=== PATIENT | female | born 1945 | race Caucasian/White ===

== ENCOUNTER → 2019-09-27 07:51 | Outpatient (CLI) | payer MEDICARE, BC, SELFPAY ==
--- NOTE | 2019-09-27 | DI.US.S_ITS ---
PROCEDURE: US ABDOMEN LIMITED INDICATIONS: RIGHT ABDOMINAL WALL LUMP TECHNIQUE: Real-time focused scanning was performed of the abdomen, with image documentation. COMPARISON: None. FINDINGS: There is a 1.6 x 3.3 x 6.4 cm slightly geuvklptx-oh-rvnk wall fat structure that appears sharply demarcated correlated with the body wall lump at that site. 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 IMPRESSION: Presumed lipoma causing the 1.6 x 3.3 x 6.4 cm body wall mass within the fatty soft tissues in the exact area of current clinical concern. Close clinical followup is recommended and if unusual symptoms develop or further enlargement develops followup by contrast enhanced MR scanning would be recommended. Dictated by: Jose Antonio Hallman M.D. on 09/27/2019 at 9:00 Approved by: Jose Antonio Hallman M.D. on 09/27/2019 at 9:01
== END ==
PROVIDERS: PCP Physician Assistant Medical; Referring Provider Physician Assistant Medical; Visit Provider Physician Assistant Medical
DX: R22.2 Localized swelling, mass and lump, trunk (principal)
CPT/HCPCS: 76705

== ENCOUNTER → 2019-10-20 13:43 | Outpatient (CLI) | payer MEDICARE, BC, SELFPAY ==
--- NOTE | 2019-10-20 13:44 | DI.MG.S_ITS ---
BILATERAL DIGITAL SCREENING MAMMOGRAM 3D/2D WITH CAD: 10/20/2019 Comparison is made to exam dated: 08/05/2018 mammogram - [facility]. There are scattered fibroglandular elements in both breasts. Current study was also evaluated with a Computer Aided Detection (CAD) system. No significant masses, calcifications, or other findings are seen in either breast. There has been no significant interval change. IMPRESSION: NEGATIVE There is no mammographic evidence of malignancy. A 1 year screening mammogram is recommended. This exam was interpreted at Station ID: [id number]. NOTE: For mammograms, a report in lay terms will be sent to the patient. Approximately 15% of breast malignancies will not be visualized mammographically. In the management of a palpable breast mass, a negative mammogram must not discourage biopsy of a clinically suspicious lesion. Electronically Signed By: Yessenia fong/brenda:10/20/2019 15:08:42 copy to: Amy Sampson letter sent: Normal Exam ACR BI-RADS Category 1: Negative 3341F
== END ==
PROVIDERS: PCP Physician Assistant Medical
DX: Z12.31 Encounter for screening mammogram for malignant neoplasm of breast (principal); Z80.3 Family history of malignant neoplasm of breast
CPT/HCPCS: 77063; 77067

== ENCOUNTER → 2020-04-23 10:18 | Outpatient (CLI) | payer MEDICARE, BC, SELFPAY | PROVIDERS: PCP Physician Assistant Medical; Referring Provider Physician Assistant Medical; Visit Provider Physician Assistant Medical | DX: M85.852 Other specified disorders of bone density and structure, left thigh (principal); Z78.0 Asymptomatic menopausal state | CPT/HCPCS: 77080 ==

== ENCOUNTER → 2020-10-23 10:35 | Outpatient (CLI) | payer MEDICARE, BC, SELFPAY ==
--- NOTE | 2020-10-23 | DI.MG.S_ITS ---
BILATERAL DIGITAL SCREENING MAMMOGRAM 3D/2D WITH CAD: 10/23/2020 CLINICAL: Routine screening. Family history of breast cancer. Comparison is made to exams dated: 10/20/2019 mammogram - [facility] and 08/05/2018 mammogram - [facility]. There are scattered fibroglandular elements in both breasts. Current study was also evaluated with a Computer Aided Detection (CAD) system. There are benign vascular calcifications in the right breast. No significant masses, calcifications, or other findings are seen in either breast. There has been no significant interval change. IMPRESSION: BENIGN There is no mammographic evidence of malignancy. A 1 year screening mammogram is recommended. This exam was interpreted at Station ID: [id number]. NOTE: For mammograms, a report in lay terms will be sent to the patient. Approximately 15% of breast malignancies will not be visualized mammographically. In the management of a palpable breast mass, a negative mammogram must not discourage biopsy of a clinically suspicious lesion. Electronically Signed By: Yessenia fong/brenda:10/23/2020 16:44:04 copy to: Amy Sampson letter sent: Normal Exam ACR BI-RADS Category 2: Benign Finding(s) 3342F
== END ==
PROVIDERS: PCP Physician Assistant Medical; Referring Provider Physician Assistant Medical; Visit Provider Physician Assistant Medical
DX: Z12.31 Encounter for screening mammogram for malignant neoplasm of breast (principal); Z80.3 Family history of malignant neoplasm of breast
CPT/HCPCS: 77063; 77067

== ENCOUNTER → 2021-04-17 10:55 | Outpatient (CLI) | payer MEDICARE, BC, SELFPAY ==
--- NOTE | 2021-04-17 10:57 | DI.MRI.S_ITS ---
BREAST MRI OF BOTH BREASTS: 04/17/2021 CLINICAL: Family history of malignant neoplasm of the breast. TECHNIQUE: The patient was placed prone in a dedicated breast imaging coil. Precontrast axial STIR and 3D FLASH without fat saturation sequences were obtained. Both before and after bolus injection of contrast, sequential 1-minute axial 3D FLASH with fat saturation sequences for 3 time points, with subtraction images and maximum intensity projections (MIP's) generated. Delayed sagittal FLASH images with fat saturation were also obtained. Computer-aided detection, including computer algorithm analysis of MRI image data for lesion detection and characterization, pharmacokinetic analysis, with further physician review for interpretation, was performed. COMPARISON: [facility], , MM SCREENING MAMMO BI, 10/23/2020, 11:18. Image quality: Excellent. There is minimal background parenchymal enhancement. There are scattered fibroglandular tissue in the bilateral breast. Right breast: No mass, non-mass enhancement, or architectural distortion. No skin or nipple abnormalities. No axillary or internal mammary chain adenopathy. Left breast: No mass, non-mass enhancement, or architectural distortion. No skin or nipple abnormalities. No axillary or internal mammary chain adenopathy. Miscellaneous: Visualized portions of the upper abdomen and chest appear unremarkable. IMPRESSION: BENIGN 1. Right breast without MRI evidence for malignancy. 2. Left breast without MRI evidence for malignancy. Recommend continued annual screening mammography and annual screening breast MRI. COMMENT: The imaging literature indicates that a negative contrast breast MRI examination has a high sensitivity and a moderate specificity for detecting and excluding invasive carcinomas to a detection threshold of 3-5 mm; nonetheless, appropriate clinical and mammographic follow-up are recommended. MRI is not sensitive for detecting DCIS (ductal carcinoma in situ) and may not detect large invasive neoplasms that show only minimal enhancement such as mucinous carcinoma. If there are suspicious calcifications or clinically worrisome palpable masses, then biopsy should still be considered. Invasive neoplasms can be hidden by co-existent and benign enhancement caused by mastitis, hormone therapy effects, radiation therapy, , and recent biopsy or surgery. False positive examinations can occur in a number of circumstances, including breasts that have recently been subject to invasive procedures and those that contain atypical ductal hyperplasia, hormonally stimulated glandular tissue, fat necrosis, or radial scars. This exam was interpreted at Station ID: [id number]. Electronically Signed By: Ronald Hardy M.D. aty/:04/17/2021 14:08:14 ACR BI-RADS Category 2: Benign Finding(s) 3342F
== END ==
PROVIDERS: PCP Physician Assistant Medical; Referring Provider Obstetrics & Gynecology; Visit Provider Obstetrics & Gynecology
DX: Z12.39 Encounter for other screening for malignant neoplasm of breast (principal); Z80.3 Family history of malignant neoplasm of breast
CPT/HCPCS: 77049

== ENCOUNTER → 2021-10-28 10:59 | Outpatient (CLI) | payer MEDICARE, BC, SELFPAY ==
--- NOTE | 2021-10-28 | DI.MG.S_ITS ---
BILATERAL DIGITAL SCREENING MAMMOGRAM 3D/2D WITH CAD: 10/28/2021 CLINICAL: Routine screening. Family history of breast cancer. Comparison is made to exams dated: 10/23/2020 mammogram, 10/20/2019 mammogram - [facility], and 08/05/2018 mammogram - [facility]. There are scattered fibroglandular elements in both breasts. Current study was also evaluated with a Computer Aided Detection (CAD) system. There are benign vascular calcifications in the right breast. No significant masses, calcifications, or other findings are seen in either breast. There has been no significant interval change. IMPRESSION: BENIGN There is no mammographic evidence of malignancy. A 1 year screening mammogram is recommended. This exam was interpreted at Station ID: [id number]. NOTE: For mammograms, a report in lay terms will be sent to the patient. Approximately 15% of breast malignancies will not be visualized mammographically. In the management of a palpable breast mass, a negative mammogram must not discourage biopsy of a clinically suspicious lesion. Electronically Signed By: Chaka alfaro/brenda:10/28/2021 12:59:19 letter sent: Normal Exam ACR BI-RADS Category 2: Benign Finding(s) 3342F
== END ==
PROVIDERS: PCP Physician Assistant Medical; Referring Provider Physician Assistant Medical; Visit Provider Physician Assistant Medical
DX: Z12.31 Encounter for screening mammogram for malignant neoplasm of breast (principal); Z80.3 Family history of malignant neoplasm of breast
CPT/HCPCS: 77063; 77067

== ENCOUNTER → 2022-03-27 10:56 | Outpatient (CLI) | payer MEDICARE, BC, SELFPAY ==
[2022-03-27 13:50] LABS: COVID19 -Nasal RAPID Negative (Negative)
== END ==
PROVIDERS: PCP Physician Assistant Medical; Visit Provider Surgery
DX: Z20.822 Contact with and (suspected) exposure to COVID-19 (principal); Z01.812 Encounter for preprocedural laboratory examination
CPT/HCPCS: 87635; C9803

== ENCOUNTER 2022-03-30 12:34 | Day surgery (SDC) | payer MEDICARE, BC, SELFPAY ==
[2022-03-30] MEDS: SODIUM CHLORIDE 0.9% 1,000 ML 84 ML IV (14:50)
[2022-03-30 15:03] VITALS: BP 154/89; PULSE 114; RESP 18; TEMP 36.8; O2SAT 96
--- NOTE | 2022-03-30 15:11 | P.HP_ITS ---
History of Present Illness History of Present Illness Date Patient Seen: 03/30/22 Time Patient Seen: 15:12 Chief complaint: [facility] [place] Narrative: Personal history of colon polyps. Family history of colon cancer in her brother. Prior failed colonoscopy 2018. Patient History Medical History Ankle pain (~01/2019) Bunion (~2002) Chicken pox (~1949) Colon polyps (~1998) Diverticular disease (~2004) Environmental allergies (~2010) Fracture (~2014) Frequent UTI Hammer toe (~2002) Hearing loss (~04/2019) Hemorrhoid Measles Mumps (~1954) OAB (overactive bladder) Osteopenia (~2009) Perimenopause (~1993) Plantar warts (~1960) Shoulder pain (~01/2019) Skin cancer Wears glasses Surgical History Anesthesia H/O breast biopsy (~05/1978) History of colonoscopy History of foot surgery (~07/2002) History of surgery (~1999) Family & Social History Family History Father Hypertension History of heart disease Mother Cancer Brother Leukemia Sister Heart valve replaced Breast cancer Diabetes mellitus History of heart disease Glaucoma Grandmother Cancer Grandfather Stroke Grandmother Suicide Son Prediabetes Overweight Tobacco & Substance use: Smoking Status Never smoker Meds Home Medications and Allergies Home Medications Medication Instructions Recorded Confirmed Type amlodipine 5 mg tablet 5 mg PO DAILY 10/30/19 03/30/22 History estradiol 0.01% (0.1 mg/gram) 1 gram vaginal DAILY 10/30/19 03/30/22 History vaginal cream fluticasone propionate 50 2 inhalation inhalation .QD 10/30/19 03/30/22 History mcg/actuation blister powder for inhalation mirabegron 25 mg tablet,extended 25 mg PO DAILY 10/30/19 03/30/22 History release 24 hr (Myrbetriq) pravastatin 20 mg tablet 20 mg PO BEDTIME 10/30/19 03/30/22 History fluorouracil 0.5 % topical cream 1 applic topical DAILY 12/11/20 03/30/22 History dorzolamide 2 % eye drops 1 drp EYE-BOTH BID 03/30/22 03/30/22 History latanoprost 0.005 % eye drops 1 drp EYE-BOTH DAILY 03/30/22 03/30/22 History timolol maleate 0.5 % eye gel 1 drp EYE-BOTH BID 03/30/22 03/30/22 History forming solution Allergies Allergy/AdvReac Type Severity Reaction Status Date / Time No Known Drug Allergies Allergy Verified 03/30/22 14:52 Review of Systems Review of Systems ROS: Yes All systems reviewed with the patient and are negative except as otherwise documented Exam Const General: cooperative HENMT Head: normal to inspection Eyes General: appearance normal, both eyes and all related structures Neck Neck: normal visual inspection Chest Chest: normal inspection of the chest Resp Effort & Inspection: normal respiratory effort Cardio Rate: regular rate GI Inspection: normal to inspection Skin General: no rashes or lesions noted Neuro General: patient alert and patient awake Extrem General: normal to inspection and no pedal edema Psych Appearance: grossly normal Assessment & Plan Assessment & Plan narrative: 76-year-old female with a personal history of colon polyps and a family history of colon cancer. Colonoscopy is pursued today. Time Spent With Patient Critical Care time: I spent a total of [] minutes of critical care time on this patient's care today; this time is exclusive of procedural time.
--- NOTE | 2022-03-30 15:13 | PM.PREOP ---
Pre-operative Note COVID-19 COVID-19 status: Negative Result date/Date tested (Pos, Neg/Pending): 03/27/22 Criteria for continued procedure: Possibility delay results in more complex future surgery or treatment Interval Note History & Physical reviewed/Exam performed by Physician: Yes Changes to H&P: No ASA Class (for procedural sedation): II
--- NOTE | 2022-03-30 17:34 | PM.OP.COLON ---
Operative Date/Time/Diagnoses Date of procedure: 03/30/22 Time of procedure: 17:34 Pre-op diagnosis: History of colon polyps. History of failed colonoscopy. Family history of colon cancer. Post-op diagnosis: same Procedure & Clinicians Study performed: Incomplete colonoscopy Same procedure as scheduled: No Indications: History of colon polyps. History of failed colonoscopy. Family history of colon cancer. Surgeon: Gavin Powers Procedure Notes SCOAP/Timeout: Done Procedure in detail: After the risks and benefits were explained, written and verbal informed consent was obtained. The patient was brought into the procedure room and placed into the left lateral decubitus position. Please see nurse flask pusher notes for sedation details. Digital rectal examination was accomplished. The scope was introduced into the patient and advanced under direct visualization to the splenic flexure. Despite multiple changes in pressure, position, and use of the stiffening reece, we were unable to overcome looping secondary to severe left colon tortuosity. Procedure was aborted at around splenic flexure. The scope was slowly withdrawn to carefully examine the mucosa for any defects or lesions. Comprehensive imaging was accomplished throughout the rectum including the dentate line. The colon was decompressed, the scope was then removed from the patient who tolerated the procedure well. Scope withdrawal time: Not applicable Sedation minutes: 31 Specimen(s): none sent Complications: none Impression: Incomplete exam secondary to severe sigmoid tortuosity. The patient had severe sigmoid diverticulosis. Many times during the lengthy transit through left colon she started to have bradycardia but did not drop her pressure. We arrived at approximately splenic flexure. At times there was about 50 cm of scope introduced. As outlined above despite multiple efforts by multiple staff (position change pressure stiffening agent) I did not feel that I could safely advance beyond splenic flexure. The left colon did not demonstrate any significant polyps inflammation or mass lesion. Mild internal hemorrhoids were noted on direct digital exam. Endoscopic diagnosis 1. Incomplete colonoscopy 2. Diverticulosis 3. Tortuous left colon 4. Grade 1 to grade 2 hemorrhoids. Post-procedure Plan for aftercare: In light of family history, I would recommend a less invasive way of colon cancer screening via virtual colonography. In light of today's challenges, I suggest this be accomplished within the next year. Disposition: PACU
[2022-03-30 17:37] VITALS: BP 114/66; PULSE 84; RESP 19; TEMP 37.1; O2SAT 97
[2022-03-30 17:41] VITALS: BP 118/54; PULSE 88; RESP 21; O2SAT 97
[2022-03-30 17:47] VITALS: BP 119/53; PULSE 84; RESP 20; TEMP 36.6; O2SAT 97
[2022-03-30 17:52] VITALS: BP 137/75; PULSE 86; RESP 16; O2SAT 97
== END 2022-03-30 18:14 | disposition home or self-care (01) ==
PROVIDERS: PCP Physician Assistant Medical; Referring Provider Internal Medicine Gastroenterology; Visit Provider Internal Medicine Gastroenterology
PROC: 0DJD8ZZ Inspection of Lower Intestinal Tract, Via Natural or Artificial Opening Endoscopic (ICD-10-PCS; CPT 45378; principal; 2022-03-30 14:30)
DX: Z12.11 Encounter for screening for malignant neoplasm of colon (principal); Z86.010 Personal history of colon polyps; Z80.0 Family history of malignant neoplasm of digestive organs; K57.30 Diverticulosis of large intestine without perforation or abscess without bleeding; K64.0 First degree hemorrhoids
CPT/HCPCS: G0105; J2704

== ENCOUNTER → 2022-06-17 10:06 | Outpatient (CLI) | payer MEDICARE, BC, SELFPAY ==
--- NOTE | 2022-06-17 13:32 | DI.MRI.S_ITS ---
BREAST MRI OF BOTH BREASTS: 06/17/2022 CLINICAL: Family history of Malignant neoplasm of breast. PROCEDURE: MR BREAST BI WO/W CON INDICATIONS: family hx breast ca mom and sister TECHNIQUE: The patient was placed prone in a dedicated breast imaging coil. Precontrast axial STIR and 3D FLASH without fat saturation sequences were obtained. Both before and after bolus injection of contrast, sequential 1-minute axial 3D FLASH with fat saturation sequences for 3 time points, with subtraction images and maximum intensity projections (MIP's) generated. Delayed sagittal FLASH images with fat saturation were also obtained. Computer-aided detection, including computer algorithm analysis of MRI image data for lesion detection and characterization, pharmacokinetic analysis, with further physician review for interpretation, was performed. COMPARISON: [facility], , MR BREAST BI WO/W CON, 04/17/2021, 11:43. FINDINGS: Image quality: Excellent. There is minimal background parenchymal enhancement. Right breast: No suspicious enhancement or mass lesions. Left breast: No suspicious enhancement or mass lesions. Miscellaneous: No axillary adenopathy or intramammary adenopathy. Limited visualization of the heart, mediastinum and lungs are unremarkable. IMPRESSION: NEGATIVE Negative breast MRI. Future imaging is recommended as follows: 10/29/2022 screening mammogram. This exam was interpreted at Station ID: [id number]. Electronically Signed By: Lidia Phillips M.D. lk/:06/17/2022 13:32:06 ACR BI-RADS Category 1: Negative 3341F
== END ==
PROVIDERS: PCP Physician Assistant Medical; Referring Provider Obstetrics & Gynecology; Visit Provider Obstetrics & Gynecology
DX: Z80.3 Family history of malignant neoplasm of breast (principal); Z12.39 Encounter for other screening for malignant neoplasm of breast
CPT/HCPCS: 77049; A9579

== ENCOUNTER → 2022-11-25 12:05 | Outpatient (CLI) | payer MEDICARE, BC, SELFPAY ==
--- NOTE | 2022-11-25 12:07 | DI.MG.S_ITS ---
BILATERAL DIGITAL SCREENING MAMMOGRAM 3D/2D WITH CAD: 11/25/2022 CLINICAL: Routine screening. Family history of breast cancer. Comparison is made to exams dated: 10/28/2021 mammogram, 10/23/2020 mammogram, and 10/20/2019 mammogram - . There are scattered areas of fibroglandular density in both breasts (category b / 25%-50% glandular tissue). Current study was also evaluated with a Computer Aided Detection (CAD) system. There is an asymmetry in the left breast posterior depth lateral region seen on the craniocaudal view only. This is more prominent. No other significant masses, calcifications, or other findings are seen in either breast. IMPRESSION: INCOMPLETE: NEEDS ADDITIONAL IMAGING EVALUATION The asymmetry in the left breast is indeterminate. Additional views with possible ultrasound are recommended. Based on the Tyrer Cuzick model (a risk assessment model) the patient's lifetime risk is 6.4% and her 10 year risk is 0.0%. According to the ACR, ACS, and NCCN guidelines, an annual breast MRI exam along with mammogram is recommended if the patient's lifetime risk is 20% or greater. This exam was interpreted at Station ID: [id number]. NOTE: For mammograms, a report in lay terms will be sent to the patient. Approximately 15% of breast malignancies will not be visualized mammographically. In the management of a palpable breast mass, a negative mammogram must not discourage biopsy of a clinically suspicious lesion. Electronically Signed By: Glenn Blackburn M.D. lc/:11/25/2022 13:37:01 copy to: ADRIENNE NOVA letter sent: Additional Imaging Needed ACR BI-RADS Category 0: Incomplete 3340F
== END ==
PROVIDERS: PCP Physician Assistant Medical; Referring Provider Obstetrics & Gynecology; Visit Provider Obstetrics & Gynecology
DX: Z12.31 Encounter for screening mammogram for malignant neoplasm of breast (principal); Z80.3 Family history of malignant neoplasm of breast; Z98.890 Other specified postprocedural states
CPT/HCPCS: 77063; 77067

== ENCOUNTER → 2022-12-09 12:58 | Outpatient (CLI) | payer MEDICARE, BC, SELFPAY ==
--- NOTE | 2022-12-09 12:59 | DI.MG.S_ITS ---
UNILATERAL LEFT DIGITAL DIAGNOSTIC MAMMOGRAM 3D/2D WITH ADDITIONAL VIEWS: 12/09/2022 CLINICAL: Additional evaluation requested from prior study. Comparison is made to exams dated: 11/25/2022 mammogram, 10/28/2021 mammogram, and 10/23/2020 mammogram - [facility]. There are scattered areas of fibroglandular density in the left breast (category b / 25%-50% glandular tissue). There is an asymmetry in the left breast posterior depth lateral region seen on the craniocaudal view only. This is not seen in additional views. This is less prominent, likely superimposition. No other significant masses or calcifications are seen in the breast. IMPRESSION: NEGATIVE There is no mammographic evidence of malignancy. Return to annual mammogram screening schedule is recommended. Based on the Tyrer Cuzick model (a risk assessment model) the patient's lifetime risk is 6.4% and her 10 year risk is 0.0%. According to the ACR, ACS, and NCCN guidelines, an annual breast MRI exam along with mammogram is recommended if the patient's lifetime risk is 20% or greater. This exam was interpreted at Station ID: [id number]. NOTE: For mammograms, a report in lay terms will be sent to the patient. Approximately 15% of breast malignancies will not be visualized mammographically. In the management of a palpable breast mass, a negative mammogram must not discourage biopsy of a clinically suspicious lesion. Electronically Signed By: Glenn Blackburn M.D. lc/:12/09/2022 14:01:52 copy to: ADRIENNE NOVA letter sent: Normal Exam ACR BI-RADS Category 1: Negative 3341F
== END ==
PROVIDERS: PCP Physician Assistant Medical; Referring Provider Obstetrics & Gynecology; Visit Provider Obstetrics & Gynecology
DX: R92.8 Other abnormal and inconclusive findings on diagnostic imaging of breast (principal); N64.89 Other specified disorders of breast; Z80.3 Family history of malignant neoplasm of breast
CPT/HCPCS: 77065; G0279

== ENCOUNTER → 2023-05-11 14:19 | Outpatient (CLI) | payer MEDICARE, BC, SELFPAY ==
--- NOTE | 2023-05-11 | DI.US.S_ITS ---
PROCEDURE: US PELVIC COMPLETE INDICATIONS: LEIOMYOMA TECHNIQUE: Real-time scanning was performed of the pelvic organs, with image documentation. Additional endovaginal scanning was necessary due to incomplete visualization of the adnexal and endometrial structures by transabdominal scanning. COMPARISON: None. FINDINGS: Uterus: Uterus is anteverted prevoid and retroverted postvoid and normal in size at 4.9 x 2.8 x 3.8 cm. The myometrium is heterogeneous. The endometrium measures 3 mm combined thickness (excluding minimal fluid in the endometrial) canal. 3 small fibroids are noted, the largest of which measures 1.8 x 1.5 x 0.4 cm, and the 2nd largest of which measures 1.6 x 1.5 x 1.2 cm. The last fibroid measures 0.7 cm. Ovaries: Right ovary not visualized. Left ovary has a normal postmenopausal appearance, measuring 1.5 x 0.9 x 0.9 cm. No abnormal adnexal masses. Other: No pathologic free abdominal or pelvic fluid. IMPRESSION: 1. No endometrial thickening noted. 2. Multiple small fibroids. 3. No adnexal masses. We strive to produce accurate, complete, and clear reports of imaging services. To assist us in improving patient care, this report was composed using standard report templates and voice recognition software. Therefore, it may contain abnormal punctuation, insertions and/or omissions. Occasional wrong-word or sound-alike substitutions may occur. Though we review the report and make efforts to correct it, we do recommend that the report be read carefully in proper context to recognize any text inaccuracies. Dictated by: Seth Alberts M.D. on 05/11/2023 at 18:24 Approved by: Seth Alberts M.D. on 05/11/2023 at 18:28
== END ==
PROVIDERS: PCP Physician Assistant Medical; Referring Provider Physician Assistant Medical; Visit Provider Physician Assistant Medical
DX: D25.9 Leiomyoma of uterus, unspecified (principal)
CPT/HCPCS: 76830; 76856

== ENCOUNTER → 2023-12-24 14:12 | Outpatient (CLI) | payer MEDICARE, BC, SELFPAY ==
--- NOTE | 2023-12-24 14:14 | DI.MG.S_ITS ---
BILATERAL DIGITAL SCREENING MAMMOGRAM 3D/2D WITH CAD: 12/24/2023 CLINICAL: Routine screening. Family history of breast cancer. Comparison is made to exams dated: 11/25/2022 mammogram, 10/28/2021 mammogram, and 10/23/2020 mammogram - . There are scattered areas of fibroglandular density in both breasts (category b / 25%-50% glandular tissue). Current study was also evaluated with a Computer Aided Detection (CAD) system. There are benign vascular calcifications in both breasts. No significant masses, calcifications, or other findings are seen in either breast. Left breast scar marker. There has been no significant interval change. IMPRESSION: BENIGN There is no mammographic evidence of malignancy. A 1 year screening mammogram is recommended. Based on the Tyrer Cuzick model (a risk assessment model) the patient's lifetime risk is 5.8% and her 10 year risk is 0.0%. According to the ACR, ACS, and NCCN guidelines, an annual breast MRI exam along with mammogram is recommended if the patient's lifetime risk is 20% or greater. This exam was interpreted at Station ID: [id number]. NOTE: For mammograms, a report in lay terms will be sent to the patient. Approximately 15% of breast malignancies will not be visualized mammographically. In the management of a palpable breast mass, a negative mammogram must not discourage biopsy of a clinically suspicious lesion. Electronically Signed By: John Schofield M.D. slc/:12/24/2023 16:06:15 copy to: ADRIENNE NOVA letter sent: Normal Exam ACR BI-RADS Category 2: Benign Finding(s) 3342F
== END ==
PROVIDERS: PCP Physician Assistant Medical; Referring Provider Physician Assistant Medical; Visit Provider Physician Assistant Medical
DX: Z12.31 Encounter for screening mammogram for malignant neoplasm of breast (principal); Z80.3 Family history of malignant neoplasm of breast; R92.323 Mammographic fibroglandular density, bilateral breasts
CPT/HCPCS: 77063; 77067

== ENCOUNTER → 2024-12-27 10:16 | Outpatient (CLI) | payer MEDICARE, BC, SELFPAY ==
--- NOTE | 2024-12-27 10:19 | DI.MG.S_ITS ---
MM screening mammo BI: 12/27/2024. BI-RADS: 1 CLINICAL: 79-year old female for bilateral screening mammogram. Tyrer-Cuzick lifetime risk of 6.8%. Current reported family history of breast cancer: mother and sister. The patient reports testing negative for BRCA gene mutation. The patient had a prior left breast biopsy. PRIOR EXAMS 12/24/2023, 12/09/2022, 11/25/2022, 10/28/2021. MAMMOGRAPHY TECHNIQUE: 2D and 3D (tomosynthesis) digital mammographic views obtained, with additional images as needed for full coverage. Current study was also evaluated with a Computer Aided Detection (CAD) system. DENSITY B. There are scattered areas of fibroglandular density. MAMMOGRAPHY FINDINGS Bilateral: No suspicious mass, asymmetry, microcalcification, or other abnormality seen. No significant change from comparison. IMPRESSION: * No evidence of malignancy. RECOMMENDATIONS Bilateral * Annual screening mammography. OVERALL ASSESSMENT CATEGORY BI-RADS-1: Negative. The [employer] [place] [employer] [employer] recommends annual screening mammography beginning at age 40 for women with average risk of breast cancer. ELECTRONICALLY SIGNED: Delores Isabel M.D. on 12/27/2024 at 11:03:13 PM PT Interpreting Station ID: [id number]
== END ==
LOC: MAMMO 10:18
PROVIDERS: PCP Physician Assistant Medical; Referring Provider Physician Assistant Medical; Visit Provider Physician Assistant Medical
DX: Z12.31 Encounter for screening mammogram for malignant neoplasm of breast (principal); Z80.3 Family history of malignant neoplasm of breast
CPT/HCPCS: 77063; 77067

== ENCOUNTER → 2025-04-13 09:22 | Outpatient (CLI) | payer MEDICARE, BC, SELFPAY ==
--- NOTE | 2025-04-13 09:24 | DI.RAD.S_ITS ---
PROCEDURE: XR DEXA AXIAL SKELETON INDICATIONS: osteoporosis screening COMPARISON: [facility], [facility], XR DEXA AXIAL SKELETON, 04/23/2020, 10:36. FINDINGS: Lumbar Spine: Bone mineral density 0.882 g/cm2, T score -1.5, prior T-score of -1.9. Left Femoral Neck: Bone mineral density 0.559 g/cm2, T score -2.6. Left Hip: Bone mineral density 0.699 g/cm2, T score -2.0, prior T-score of -1.4. Fracture Risk Calculation (when applicable): 10-year fracture risk of a major osteoporotic fracture 18 percent and of a hip fracture 6.2 percent. (T score greater or equal to -1.0 to: NORMAL) (T score from -1.1 to -2.4: OSTEOPENIA) (T score less than or equal to -2.5: OSTEOPOROSIS) IMPRESSION: Osteopenia, comparison cannot be made to the prior exam due to differences in technique, however the prior T-scores are reported. Follow-up guidelines as follows: Osteoporosis: Consider a repeat DEXA and Vertebral Fracture Assessment (VFA) exam in 2 years or sooner if medically necessary, to reassess this patient's status. Osteopenia: Consider a repeat DEXA in 2-3 years to reassess this patient's status, or if there is a new clinical indication. Normal: Consider a repeat DEXA in 5 years or sooner, or if there is a new clinical indication. All treatment decisions require clinical judgment and consideration of individual patient factors, including patient preferences, comorbidities, previous drug use, risk factors not captured in the FRAX model (e.g., frailty, falls, vitamin D deficiency, increased bone turnover, interval significant decline in bone density ) and possible under- or over-estimation of fracture risk by FRAX. In addition, the NOF Guide recommends that FDA-approved medical therapies be considered in postmenopausal women and men age >= 50 years with a: * Hip or vertebral (clinical or morphometric) fracture * T-score of <=-2.5 at the spine or hip * Ten-year fracture probability by FRAX of >= 3% for hip fracture or >=20% for major osteoporotic fracture. Dictated by: Rohit Christianson M.D. on 04/13/2025 at 11:09 Approved by: Rohit Christianson M.D. on 04/13/2025 at 11:11
== END ==
LOC: RAD 09:23
PROVIDERS: PCP Physician Assistant Medical; Referring Provider Physician Assistant Medical; Visit Provider Physician Assistant Medical
DX: M85.89 Other specified disorders of bone density and structure, multiple sites (principal); Z78.0 Asymptomatic menopausal state
CPT/HCPCS: 77080

== ENCOUNTER 2025-05-20 10:42 | Emergency (ER) | payer MEDICARE, BC, SELFPAY ==
[2025-05-20] VITALS (10 sets, daily range): BP systolic 163–189; BP diastolic 74–108; PULSE 104–130; RESP 16–24; TEMP 37.1; O2SAT 92–97; BMI 30.5
--- NOTE | 2025-05-20 11:33 | ED.GIBLEED ---
HPI - GI Bleed General Chief complaint: GI Bleed Stated complaint: Rectal bleeding 6days-worsening; BM this am Time Seen by Provider: 05/20/25 10:51 Source: patient Mode of arrival: Ambulatory History of Present Illness HPI Narrative: 79-year-old female history of dyslipidemia hypertension presents with rectal bleeding past 6 days for which he is not on any blood thinners. Patient denies any headache,dizziness, loss consciousness, chest pain, shortness of breath, abdominal pain, back pain, urinary complaints. Other than what is stated 14 point review of system is negative. Related Data Home Medications ?Medication ?Instructions ?Recorded ?Confirmed amlodipine 5 mg tablet 5 mg PO DAILY 10/30/19 05/02/25 estradiol 0.01% (0.1 mg/gram) 1 gram vaginal DAILY 10/30/19 05/02/25 vaginal cream fluticasone propionate 50 2 inhalation inhalation .QD 10/30/19 05/02/25 mcg/actuation blister powder for inhalation mirabegron 25 mg tablet,extended 25 mg PO DAILY 10/30/19 05/02/25 release 24 hr (Myrbetriq) pravastatin 20 mg tablet 20 mg PO BEDTIME 10/30/19 05/02/25 fluorouracil 0.5 % topical cream 1 applic topical DAILY 12/11/20 05/02/25 dorzolamide 2 % eye drops 1 drp EYE-BOTH BID 03/30/22 05/02/25 latanoprost 0.005 % eye drops 1 drp EYE-BOTH DAILY 03/30/22 05/02/25 timolol maleate 0.5 % eye gel 1 drp EYE-BOTH BID 03/30/22 05/02/25 forming solution fluticasone propionate 50 spray intranasal 05/02/25 05/02/25 mcg/actuation nasal spray,suspension Allergies Allergy/AdvReac Type Severity Reaction Status Date / Time No Known Drug Allergies Allergy Verified 05/02/25 10:41 Patient History Medical History Ankle pain (~01/2019) Bunion (~2002) Chicken pox (~1949) Colon polyps (~1998) Diverticular disease (~2004) Environmental allergies (~2010) Fracture (~2014) Frequent UTI Hammer toe (~2002) Hearing loss (~04/2019) Hemorrhoid Measles Mumps (~1954) OAB (overactive bladder) Osteopenia (~2009) Perimenopause (~1993) Plantar warts (~1960) Shoulder pain (~01/2019) Skin cancer Wears glasses Surgical History Anesthesia H/O breast biopsy (~05/1978) History of colonoscopy History of foot surgery (~07/2002) History of surgery (~1999) Family History Father Hypertension History of heart disease Mother Cancer Brother Leukemia Sister Heart valve replaced Breast cancer Diabetes mellitus History of heart disease Glaucoma Grandmother Cancer Grandfather Stroke Grandmother Suicide Son Prediabetes Overweight Social History household members: spouse Smoking Status: Never smoker Smoking Status: Never smoker alcohol intake frequency: a few times a week Exam Narrative Exam Narrative: GENERAL: [79] year old patient appears stated age. Well-developed patient, in mild distress. HEAD: Atraumatic. Normocephalic. EYES: Pupils equal round and reactive. Extraocular motions intact. No scleral icterus. No injection or drainage. ENT: Nose without bleeding, purulent drainage. Throat without erythema, tonsillar hypertrophy or exudate. Airway patent. NECK: Trachea midline. Non tender CARDIOVASCULAR: Regular rate and rhythm without murmurs, gallops, or rubs. RESPIRATORY: Clear to auscultation. Breath sounds equal bilaterally. No wheezes, rales, or rhonchi. GASTROINTESTINAL: Abdomen soft, non-tender, nondistended. Rectal: hemoccult neg, no fissure or hemorrhoids seen EXTREMITIES: No edema or joint tenderness. BACK: Nontender without deformity or crepitance. No flank tenderness. NEURO: AOx3. SKIN: No rash or erythema of visible areas Initial Vital Signs Initial Vital Signs: Vital Signs Temperature 98.7 F 05/20/25 11:15 Pulse Rate 130 H 05/20/25 11:15 Respiratory Rate 18 05/20/25 11:15 Blood Pressure 186/108 H 05/20/25 11:15 Pulse Oximetry 97 05/20/25 11:15 Oxygen Delivery Method Room Air 05/20/25 11:15 Course Orders Ordered: ED Orders 05/20/25 11:32 CT angio abdomen pelvis Stat Complete Blood Count AUTO DIFF Stat Comprehensive Metabolic Panel Stat Lipase Stat PT [Prothrombin Time INR] Stat EKG-12 Lead Stat Vital Signs Vital signs: Vital Signs - 8 hr 05/20/25 11:15 Temperature 98.7 F Pulse Rate 130 H Respiratory Rate 18 Blood Pressure 186/108 H Pulse Oximetry 97 Oxygen Delivery Method Room Air MDM - GI Bleed Imaging Data CT scan - abdomen/pelvis: Radiologist's Impression: [address] [address] [address] Scan Report Signed Patient: Julian Meade MR#: [id number] : 1945 Acct:[id number] Age/Sex: 79 / F Date of Service: 05/20/25 Loc: ED Accession Number: [id number] Procedure: CT angio abdomen pelvis Ordering Provider: Ceasar Bhandari D.O. PROCEDURE: CT ANGIO ABDOMEN PELVIS INDICATIONS: gi bleed TECHNIQUE: After the administration of intravenous contrast, 2.5 mm sections acquired from the diaphragm to the iliac crests. 10 mm maximum intensity projection (MIP) coronal and sagittal reformats were then performed. For radiation dose reduction, the following was used: automated exposure control. COMPARISON: None. FINDINGS: Image quality: Diagnostic. Abdominal aorta: No aortic aneurysm or evidence of acute aortic syndrome. Mesenteric arteries: Patent without hemodynamically significant stenosis. Renal arteries: Patent without hemodynamically significant stenosis. Lower chest: Unremarkable. ABDOMEN: Liver: No solid mass. Gallbladder: No radiopaque gallstones or wall thickening. Biliary ducts: No biliary dilation. Pancreas: No ductal dilation. Spleen: Size is within normal limits. Adrenal Glands: Left adrenal 3.1 x 3.3 cm likely a myelolipoma with foci of macroscopic fat.. Kidneys and Ureters: No hydronephrosis. No solid mass. No complex renal cystic lesion which requires follow up. Stomach and Bowel: Normal colonic caliber, without significant wall thickening. Diverticulosis without diverticulitis. No focal contrast extravasation. Normal appendix. Peritoneum: No abnormal intraperitoneal fluid. No free air. Ventral Wall: No hernia. Abdominal Nodes: No retroperitoneal or mesenteric adenopathy by size criteria. Vessels: Aorta, as above. Normal IVC. PELVIS: Pelvic Organs: Unremarkable. Bladder: Unremarkable. Pelvic Nodes: No enlarged lymph nodes. Miscellaneous: No inguinal hernias are seen. Bones: No aggressive osseous abnormality. Scoliosis with multilevel degenerative disc disease and facet arthrosis. IMPRESSION: 1. No active extravasation to correlate with reported gastrointestinal hemorrhage. 2. Diverticulosis without diverticulitis. 3. Left adrenal likely myelolipoma measures up to 3.3 cm. MDM Narrative Medical decision making narrative: All lab work, vital signs, nurse triage note, medication list, previous ER visits, and all imaging studies reviewed. CT scan showed no active extravasation to correlate with reported GI hemorrhage. Diverticulosis without diverticulitis. Left adrenal likely myelolipoma measuring up to 3.3 cm. Urine showed no acute process. WBC 10 hemoglobin 14.5 platelets 317 INR 1.0 sodium 141 potassium 3.9 chloride 109 BUN 12 creatinine 0.72 LFTs normal lipase 131. Differential diagnosis upper versus lower GI bleed internal versus external hemorrhoid assure UTI kidney stone. Case d/w for urgent referral to [facility] and to call office tommorow to get scoped. Discharge Plan Departure Patient Disposition: Home Clinical Impression: Rectal bleed Instructions: DI for Rectal Bleeding Activity Restrictions/Additional Instructions: Return with new or worsening symptoms. Call [facility] office office for urgent referral to have colonoscopy. [phone] Prescriptions: No Action fluticasone propionate 50 mcg/actuation spray,suspension intranasal amlodipine 5 mg tablet 5 mg PO DAILY pravastatin 20 mg tablet 20 mg PO BEDTIME Myrbetriq 25 mg tablet extended release 24 hr 25 mg PO DAILY estradiol 0.01 % (0.1 mg/gram) cream 1 gram VAG DAILY fluticasone propionate 50 mcg/actuation blister with device 2 inhalation INHALATION .QD fluorouracil 0.5 % cream 1 applic topical DAILY latanoprost 0.005 % drops 1 drp EYE-BOTH DAILY timolol maleate 0.5 % Gel Forming Solution 1 drp EYE-BOTH BID dorzolamide 2 % drops 1 drp EYE-BOTH BID Patient Comments: INSTILL ONE DROP INTO EACH EYE TWICE DAILY Referrals: Amy Sampson PA-C [Primary Care Provider, Family Practice] Stand Alone Forms: Patient Portal/API
--- NOTE | 2025-05-20 11:49 | EKG_ITS ---
[address] [address] [address] [address] Test Date: 2025-05-20 Pat Name: Julian Meade Department: Room: Gender: Female Goal Umpire: YANA : 1945 Requested By: Order Number: [id number] Reading MD: Ceasar Somers MD Measurements Intervals [place] Rate: 118 P: 14 HI: 172 QRS: 6 QRSD: 68 T: 59 QT: 316 QTc: 442 Interpretive Statements Sinus tachycardia Nonspecific ST abnormality Electronically Signed On 05-20-2025 14:59:18 PST by Ceasar oSmers MD
[2025-05-20] MEDS: LACTATED RINGERS 1,000 ML 1000 ML IV (12:00)
[2025-05-20 12:04] LABS: Add Manual Diff / Slide Review NO; Hematocrit 43.6 % (36-46); Hemoglobin 14.5 g/dL (12.0-16.0); Lymphocytes Absolute Auto 2100 /uL (1100-4500); Mean Corpuscular HGB Conc 33.3 % (30-36); Mean Corpuscular Hemoglobin 29.7 PG (26-34); Mean Corpuscular Volume 89.2 fL (80-100); Platelet Count 317 X10^3/uL (150-400)
[2025-05-20 12:14] LABS: INR 1.0 (0.9-1.3); Prothrombin Time 11.0 SECONDS (9.4-12.5)
[2025-05-20 12:16] LABS: Alanine Aminotransferase 23 IU/L (<35); Albumin 4.6 g/dL (3.5-5.0); Albumin Globulin Ratio 1.4 (1.0-2.8); Alkaline Phosphatase 100 U/L (38-126); Blood Urea Nitrogen 12 mg/dL (7-17); Calcium 9.7 mg/dL (8.4-10.2); Carbon Dioxide 25 mmol/L (22-32); Chloride 109 mmol/L (98-107); Estimated Glomerular Filt Rate > 60 mL/min (>60); Globulin 3.2 g/dL (1.7-4.1); Glucose 141 mg/dL (70-99); HEMOLYSIS < 15 (0-50); Lipase 131 U/L (23-300); Potassium 3.9 mmol/L (3.4-5.1); Sodium 141 mmol/L (137-145); Total Protein 7.8 g/dL (6.3-8.2)
== END 2025-05-20 13:55 | disposition home or self-care (01) ==
PROVIDERS: Emergency Provider Family Medicine; PCP Physician Assistant Medical
DX: K62.5 Hemorrhage of anus and rectum (principal); I10 Essential (primary) hypertension
CPT/HCPCS: 36415; 74174; 80053; 81003; 83690; 85025; 85610; 93005; 99284; J7120; Q9967